=== PATIENT | female | born 2000 | race Caucasian/White ===

== ENCOUNTER 2023-10-14 13:04 | Emergency (ER) | payer SELFPAY ==
[~2023-10-14] VITALS: Ht 170.2 cm; Wt 64.0 kg
[2023-10-14 13:38] VITALS: O2SAT 100
[2023-10-14] MEDS ORDERED: CEFTRIAXONE SODIUM 500 MG/VIAL IM ONE (15:15)
[2023-10-14] MEDS ORDERED: DOXYCYCLINE HYCLATE 100MG CAPSULE PO ONE (15:15)
[2023-10-14 15:29] LABS: CLARITY URINE CLEAR (CLEAR); COLOR URINE YELLOW (YELLOW); GLUCOSE URINE NEGATIVE (NEGATIVE); KETONES URINE NEGATIVE (NEGATIVE); LEUKOCYTE ESTERASE URINE NEGATIVE (NEGATIVE); NITRITE URINE NEGATIVE (NEGATIVE); OCCULT BLOOD URINE NEGATIVE (NEGATIVE); PROTEIN URINE NEGATIVE (NEGATIVE); SPECIFIC GRAVITY URINE 1.024 (1.005-1.030); UROBILINOGEN URINE 0.2 E.U./dL (0.2-1.0)
[2023-10-14] MEDS ORDERED: DOXY100C5 MT (16:17)
[2023-10-14 16:27] VITALS: BP 101/66; PULSE 60; RESP 14; TEMP 98.8
[2023-10-14] MEDS ORDERED: DOXYCYCLINE HYCLATE 100MG CAPSULE PO NR (16:45)
[2023-10-14] MEDS ORDERED: CEFTRIAXONE SODIUM 500 MG/VIAL IM NR (16:45)
[2023-10-17 04:08] LABS: CHLAMYDIA TRACHOMATIS NAA Negative (Negative); NEISSERIA GONORRHOEAE NAA Negative (Negative)
== END 2023-10-14 16:51 | disposition home or self-care (01) ==
LOC: ER 13:04
DX: N89.8 Other specified noninflammatory disorders of vagina (principal); F41.9 Anxiety disorder, unspecified
CPT/HCPCS: 99284; 87491; 87591; 81003; 81025; 87210; 73100; 73120; 96372; J0696